=== PATIENT | female | born 1980 | race Caucasian/White ===

== ENCOUNTER 2018-01-01 15:00 | Emergency (ER) | payer OTHER ==
[~2018-01-01] VITALS: Ht 165.1 cm; Wt 112.5 kg
[2018-01-02] MEDS ORDERED: KRISTALOSE20 GM PO (03:44)
== END 2018-01-02 03:41 | disposition home or self-care (01) ==
LOC: ER 15:00
DX: K59.09 Other constipation (principal); R10.84 Generalized abdominal pain

== ENCOUNTER 2021-10-03 06:20 | Day surgery (SDC) | payer OTHER ==
[~2021-10-03 06:20] MED LIST: KRISTALOSE20 GM PO
[2021-10-03] MEDS ORDERED: NEXIUM 24HR20 MG PO (09:02)
== END 2021-10-03 11:00 | disposition home or self-care (01) ==
LOC: CIR.AMB 06:20
PROVIDERS: ATTEND Surgery
DX: K20.80 Other esophagitis without bleeding (principal); K44.9 Diaphragmatic hernia without obstruction or gangrene; E66.01 Morbid (severe) obesity due to excess calories